=== PATIENT | female | born 1955 | race Caucasian/White ===

== ENCOUNTER 2022-08-31 16:13 | Emergency (ER) | payer OTHER, SELFPAY ==
[2022-08-31 17:19] VITALS: BP 136/96; PULSE 88; RESP 18; TEMP 36.7; O2SAT 100
--- NOTE | 2022-08-31 17:20 | ED.LOWEXIN ---
HPI - Extremity Injury (Lower) General Chief Complaint: Extremity Injury, Lower Stated Complaint: left knee pain/swelling Time Seen by Provider: 08/31/22 17:20 Source: patient Mode of arrival: ambulatory Limitations: no limitations History of Present Illness HPI Narrative: Nayla is a 66-year-old female patient presenting to clinic today with complaints of left knee pain and swelling. She reports 2 weeks ago that her 2 keys-poodle dogs ran into her left knee. States they ran into the front of her knee causing her knee to hyperextended backwards. States that after a week the knee pain did improve however she began to walk and bend and flex her knee normally and it became swollen and painful exam. She does have bilateral lower extremity edema. Does have a history of this and takes water pill when needed. She feels as though the tib-fib area feels bruised and she has tightness in the knee joint Related Data Home Medications Medication Instructions Recorded Confirmed albuterol sulfate 90 mcg/actuation inhalation 08/31/22 aerosol inhaler atorvastatin 80 mg tablet mg 08/31/22 carvedilol 25 mg tablet mg 08/31/22 fluticasone fur. 100 mcg-umeclid inhalation 08/31/22 62.5 mcg-vilant 25 mcg inhalat.powder (Trelegy Ellipta) levothyroxine 175 mcg tablet mcg 08/31/22 paroxetine HCl 20 mg tablet mg PO 08/31/22 rivaroxaban 20 mg tablet (Xarelto) mg 08/31/22 sacubitril 97 mg-valsartan 103 mg tablet 08/31/22 tablet (Entresto) sertraline 100 mg tablet mg 08/31/22 spironolactone 25 mg tablet mg 08/31/22 Allergies Allergy/AdvReac Type Severity Reaction Status Date / Time No Known Allergies Allergy Unknown Unverified 04/19/17 13:30 Review of Systems Review of Systems: Pertinent positives per HPI. Patient denies any fever, chills, rash, headache, visual changes, dizziness, cough, runny nose, sore throat, shortness of breath, chest pain, palpitations, nausea, vomiting, diarrhea, constipation, abdominal pain, or any urinary issues. PMFSH Comments At the time of my signature, I reviewed and agree with the nursing past medical, surgical, social, and family history. There is no relevant family history pertinent to the patient complaint. Exam Narrative: General: Well-developed, well nourished, in no apparent distress Head: Normocephalic, atraumatic. Cardio: Regular rate and rhythm, s1 and s2 normal, no murmur appreciated. Resp: Clear to auscultation bilaterally, no rhonchi, rales, wheezing or rubs. Musculoskeletal: No deformity, swelling to the entire left knee, no redness or erythema noted,tender to palpation over the proximal tib-fib, 2+ pitting edema in lower bilateral extremities, grossly normal range of motion but feels tight, no crepitus felt,muscle strength strong and equal, peripheral pulse strong, no cyanosis, normal gait and station Course Course Emergency Course: Portions of this record may have been created with voice recognition software. Level of Care: Express Care Visit Vital Signs Vital signs: Vital Signs Temperature 36.7 C 08/31/22 17:19 Pulse Rate 88 08/31/22 17:19 Respiratory Rate 18 08/31/22 17:19 Blood Pressure 136/96 H 08/31/22 17:19 Pulse Oximetry 100 08/31/22 17:19 Oxygen Delivery Room Air 08/31/22 17:19 Temperature 36.7 C 08/31/22 17:19 Pulse Rate 88 08/31/22 17:19 Respiratory Rate 18 08/31/22 17:19 Blood Pressure 136/96 H 08/31/22 17:19 Pulse Oximetry 100 08/31/22 17:19 Oxygen Delivery Room Air 08/31/22 17:19 Vital signs reviewed MDM - Extremity Injury (Lower) MDM Narrative Medical decision making narrative: Offered to send patient to another [facility] for x-ray as we do not currently have an x-ray tech on duty. Patient declined at this time and will follow-up with her PCP for further evaluation If taking her water pills do not help. I suspect the patient has a knee sprain. Supportive measures were d
== END 2022-08-31 17:30 | disposition home or self-care (01) ==
PROVIDERS: Emergency Provider Nurse Practitioner Family; PCP Nurse Practitioner Family
DX: S83.92XA Sprain of unspecified site of left knee, initial encounter (principal); W54.1XXA Struck by dog, initial encounter
CPT/HCPCS: 99212; G0463

== ENCOUNTER 2022-09-30 14:46 | Emergency (ER) | payer OTHER, SELFPAY ==
[2022-09-30] VITALS (7 sets, daily range): BP systolic 131–135; BP diastolic 77–87; PULSE 72–91; RESP 18–34; TEMP 36.8; O2SAT 92–95
--- NOTE | ~2022-09-30 | XR_ITS ---
EXAMINATION: XR chest 2V Exam Date/Time: 09/30/2022 15:45 LOADING MANAGER HISTORY: Cough, congestion, sob x 1week Comparison: None available. RESULT: Lines, tubes, and devices: None. Lungs and pleura: Coarse mid and lower lung interstitial opacities with small foci of subsegmental m id and lower lung airspace disease. Left midlung peripheral scar/atelectasis. Mild left costophrenic angle blunting. Cardiomediastinal silhouette: Stable. Other: No acute osseous or upper abdominal finding. IMPRESSION: Pulmonary opacities may represent interstitial edema versus atypical infection/bronchiolitis. Small l eft pleural effusion. Reviewed, dictated and finalized at location [facility]. ING MANAGER IMPRESSION: Pulmonary opacities may represent interstitial edema versus atypical infection/ bronchiolitis. Small left pleural effusion.
--- NOTE | 2022-09-30 15:45 | ECG_ITS ---
Measurements Intervals [place] Rate: 83 P: [place]: 0 QRS: 26 QRSD: 116 T: -6 QT: 372 QTc: 438 Interpretive Statements ATRIAL FIBRILLATION WITH ABERRANT CONDUCTION OR VENTRICULAR PREMATURE COMPLEXES LOW QRS VOLTAGE IN PRECORDIAL LEADS [QRS DEFLECTION < 1.0 mV IN CHEST LEADS] POOR R WAVE PROGRESSION NO PREVIOUS ECG AVAILABLE FOR COMPARISON Electronically Signed On 10-01-2022 6:19:42 [employer] by Griffin Hawkins M.D.
--- NOTE | 2022-09-30 16:07 | ED.GENADULT ---
HPI - General Adult General Chief complaint: Upper Respiratory Infection Stated complaint: Congestion, cough, exposed to the flu Time Seen by Provider: 09/30/22 15:40 History of Present Illness HPI narrative: 66-year-old female with a history of atrial fibrillation, CHF, COPD, A. fib, and hypertension presents to the emergency room for increasing shortness of breath, unproductive cough and sinus congestion since Saturday. Also endorses increased exertional dyspnea since Saturday. States she stopped smoking at this time following a significant history of tobacco use. Denies fever, chest pain or increased use of her rescue inhaler. Related Data Home Medications Medication Instructions Recorded Confirmed albuterol sulfate 90 mcg/actuation inhalation 08/31/22 aerosol inhaler atorvastatin 80 mg tablet mg 08/31/22 carvedilol 25 mg tablet mg 08/31/22 fluticasone fur. 100 mcg-umeclid inhalation 08/31/22 62.5 mcg-vilant 25 mcg inhalat.powder (Trelegy Ellipta) levothyroxine 175 mcg tablet mcg 08/31/22 paroxetine HCl 20 mg tablet mg PO 08/31/22 rivaroxaban 20 mg tablet (Xarelto) mg 08/31/22 sacubitril 97 mg-valsartan 103 mg tablet 08/31/22 tablet (Entresto) sertraline 100 mg tablet mg 08/31/22 spironolactone 25 mg tablet mg 08/31/22 Allergies Allergy/AdvReac Type Severity Reaction Status Date / Time No Known Allergies Allergy Unknown Unverified 04/19/17 13:30 Review of Systems Review of Systems: CONSTITUTIONAL: Denies fever, chills, or sweats. EYES: Denies visual changes, redness, or discharge. ENT: Denies rhinorrhea, congestion, sore throat, or otalgia. CARDIOVASCULAR: Denies chest pain, palpitations, or edema. RESPIRATORY: Reports cough and dyspnea. GASTROINTESTINAL: Denies abdominal pain, nausea, vomiting, or diarrhea. GENITOURINARY: Denies dysuria or hematuria. SKIN: Denies rash or itching. MUSCULOSKELETAL: Denies back pain, joint pain, or myalgia. NEUROLOGIC: Denies headache, numbness, dizziness, or weakness. PSYCHIATRIC: Denies anxiety or depression. Course Vital Signs Vital signs: Vital Signs Temperature 36.8 C 09/30/22 15:20 Pulse Rate 78 12/11/22 15:20 Respiratory Rate 18 09/30/22 15:20 Blood Pressure 135/77 09/30/22 15:20 Pulse Oximetry 95 09/30/22 15:20 Oxygen Delivery Room Air 09/30/22 15:20 Temperature 36.8 C 09/30/22 15:20 Pulse Rate 78 09/30/22 15:20 Respiratory Rate 18 09/30/22 15:20 Blood Pressure 135/77 09/30/22 15:20 Pulse Oximetry 95 09/30/22 15:20 Oxygen Delivery Room Air 09/30/22 15:20 Medical Decision Making MDM Narrative Medical decision making narrative: 66-year-old female history of CHF, atrial fibrillation, COPD, hypertension presented to the emergency room for evaluation of exertional shortness of breath. Patient's chest x-ray showed pulmonary opacities which could be interstitial edema versus an atypical infection. Patient was found to be flu a positive and to have a BNP of 2300. These are consistent with her findings of her chest x-ray. Patient was given a breathing treatment that she says alleviated some of her dyspnea. Given IV Lasix and supplemental potassium here in the ER. Discussed findings with patient, and through shared decision making, patient is requesting to go home. She states that she has oral Lasix and potassium supplementation for uses as needed. Recommended patient use the Lasix and oral potassium for the next 4 or 5 days. We will send patient home with a course of oral steroids and recommended close follow-up with her PCP. Vital Signs Vital Signs: Vital Signs Temperature 36.8 C 09/30/22 15:20 Pulse Rate 78 09/30/22 15:20 Respiratory Rate 18 09/30/22 15:20 Blood Pressure 135/77 09/30/22 15:20 Pulse Oximetry 95 09/30/22 15:20 Oxygen Delivery Room Air 09/30/22 15:20 Temperature 36.8 C 09/30/22 15:20 Pulse Rate 78 09/30/22 15:20 Respiratory Rate 18 09/30/22 15:20 Blood Pres
[2022-09-30] MEDS: IPRATROPIUM BR 0.02% INH SOLN 0.5 MG/2.5 ML VIAL INHALATION (16:22)
[2022-09-30] MEDS: ALBUTEROL SULFATE NEB 2.5 MG/3 ML INH INHALATION (16:22)
[2022-09-30 16:24] LABS: Basophils Absolute Auto 0.1 K/mm3 (0.0-0.1); Basophils Percent Auto 0.7 % (0.2-1.2); Eosinophils Absolute Auto 0.1 K/mm3 (0-0.3); Hematocrit 32.1 % (37.0-47.0); Hemoglobin 10.7 g/dL (12.0-15.0); Immature Granulocyte Absolute 0.15 K/mm3 (0.00-0.031); Immature Granulocyte Percent A 1.8 % (0-0.5); Lymphocytes Absolute Auto 1.22 K/mm3 (0.9-3.2); Lymphocytes Percent Auto 14.7 % (18.3-44.2); Mean Corpuscular HGB Conc 33.3 g/dl (32-36); Mean Corpuscular Volume 99.1 fl (80-100); Mean Platelet Volume 10.1 fl (7.4-10.4); Monocytes Absolute Auto 0.7 K/mm3 (0.1-0.6); Monocytes Percent Auto 8.7 % (2.6-8.5); Neutrophils Absolute Auto 6.1 K/mm3 (1.3-6.7); Neutrophils Percent Auto 73.1 % (45.5-73.1); Platelet Count Result 299 k/mm3 (150-375); Red Blood Count 3.24 M/mm3 (4.2-5.4); Red Cell Distribution Width 12.9 % (11.5-14.5); White Blood Count 8.3 K/mm3 (4.5-10.0)
[2022-09-30] MEDS: methylPREDNISolone SOD SUCC 125 MG VIAL IV PUSH (16:31)
[2022-09-30 16:35] LABS: Alanine Aminotransferase 152 U/L (6-35); Albumin Level 4.1 g/dL (3.5-5.1); Alkaline Phosphatase 170 U/L (38-126); Anion Gap 7 mmol/L (8-16); Aspartate Amino Transferase 129 U/L (14-36); Bilirubin,Total 0.8 mg/dL (0.2-1.3); Blood Urea Nitrogen 7 mg/dL (7-17); Calcium 8.7 mg/dL (8.4-10.2); Carbon Dioxide 27 mmol/L (22-30); Chloride 106 mmol/L (98-107); Estimated CRCL calculation 94 ml/min; Estimated Glomerular Filt Rate > 60; Glucose 115 mg/dL (65-110); Potassium 3.3 mmol/L (3.4-5.0); Sodium 140 mmol/L (137-145)
[2022-09-30 16:40] LABS: INR 1.5; Partial Thromboplastin Time 34.5 SECONDS (22.3-36.8); Prothrombin Time 17.8 Seconds (11.1-14.7)
[2022-09-30 16:47] LABS: NT Pro B Type Natriuretic Pept 2300 pg/mL (5-100); Troponin I < 0.012 ng/mL (0.000-0.034)
[2022-09-30 17:01] LABS: Influenza A QL RT-PCR Positive (Negative); Influenza B QL RT-PCR Negative (Negative); RSV RNA, RT-PCR Negative (Negative); SARS-CoV-2 RNA PCR Negative
[2022-09-30] MEDS: FUROSEMIDE INJ 40 MG/4 ML VIAL IV PUSH (17:16)
[2022-09-30] MEDS: POTASSIUM CHLORIDE 20 MEQ TABLET 40 MEQ PO (17:16)
== END 2022-09-30 17:50 | disposition home or self-care (01) ==
PROVIDERS: Emergency Provider Nurse Practitioner Family; PCP Nurse Practitioner Family
DX: J10.1 Influenza due to other identified influenza virus with other respiratory manifestations (principal); J44.1 Chronic obstructive pulmonary disease with (acute) exacerbation; I50.9 Heart failure, unspecified; Z20.822 Contact with and (suspected) exposure to COVID-19; I48.91 Unspecified atrial fibrillation; I11.0 Hypertensive heart disease with heart failure; Z79.01 Long term (current) use of anticoagulants
CPT/HCPCS: 36415; 71046; 80053; 83880; 84484; 85025; 85610; 85730; 87637; 93005; 94640; 96374; 96375; 99284; A9270; J1940; J2930

== ENCOUNTER → 2022-11-27 10:25 | Outpatient (CLI) | payer OTHER, SELFPAY ==
--- NOTE | ~2022-11-27 | MR_ITS ---
MRI of the left knee Clinical history: Pain Technique: Coronal proton density and proton density-weighted images, sagittal proton-density and T2 fat-sat images, and axial proton-density fat-saturated images were acquired. Findings: Anterior and posterior cruciate ligament are intact. Medial collateral ligament and the lat eral collateral ligament complex are intact. Popliteus tendon is intact. Medial and lateral menisci are intact, without evidence of tear. There is a focally depressed fracture of the lateral tibial plateau, with maximal depression along th e posterior to the fracture of approximately 4.5 mm. There is extensive surrounding marrow edema in t he lateral tibial plateau region. No extension of fracture to the lateral tibial cortex. There is mild to moderate diffuse chondral thinning of the lateral femoral condyle. There is moderate to high-grade diffuse chondral thinning of the medial femoral condyle. There is extensive high-grade chondromalacia of the femoral trochlea and patella. Small scattered areas of subchondral reactive ma rrow edema are present in the femoral trochlea. Extensor mechanism is intact. Small joint effusion present. No Berger's cyst. There is mild subcutaneo us soft tissue edema, especially anteriorly. Impression: Focally depressed fracture of the lateral tibial plateau, as detailed above. 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 Please see details above. No ligamentous injury or meniscal tear seen. Case discussed with Viri Nguyễn at the time of this reading. Reviewed, dictated and finalized at [facility]. OSSE COACH Impression: Focally depressed fracture of the lateral tibial plateau, as detailed above. 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 Please see details above. No ligamentous injury or meniscal tear seen. Case discussed with Viri Nguyễn at the time of this reading.
== END ==
PROVIDERS: PCP Nurse Practitioner Family; Visit Provider Nurse Practitioner Family
DX: M25.562 Pain in left knee (principal); S89.90XA Unspecified injury of unspecified lower leg, initial encounter; X58.XXXA Exposure to other specified factors, initial encounter
CPT/HCPCS: 73721

== ENCOUNTER 2023-10-20 12:22 | Emergency (ER) | payer OTHER, SELFPAY ==
[2023-10-20 12:50] VITALS: BP 120/72; PULSE 85; RESP 18; TEMP 36.6; O2SAT 100
--- NOTE | 2023-10-20 12:59 | ED.URI ---
HPI - URI/Sore Throat General Chief Complaint: Upper Respiratory Infection Stated Complaint: sore throat,voice issue,right eye red Time Seen by Provider: 10/20/23 12:55 Source: patient Mode of arrival: ambulatory Limitations: no limitations History of Present Illness HPI Narrative: Nayla is a 68-year-old female patient presenting to the clinic today with complaints of sore throat, losing her voice, nasal congestion, and bilateral eye redness times 3 days. She denies any known fever or chills. Upon awakening in the morning her eyes are glued shut with yellow drainage. Eyes itchy with gritty sensation MD elicited complaint: sore throat and nasal congestion Related Data Home Medications Medication Instructions Recorded Confirmed albuterol sulfate 90 mcg/actuation inhalation 08/31/22 aerosol inhaler atorvastatin 80 mg tablet mg 08/31/22 carvedilol 25 mg tablet mg 08/31/22 fluticasone fur. 100 mcg-umeclid inhalation 08/31/22 62.5 mcg-vilant 25 mcg inhalat.powder (Trelegy Ellipta) levothyroxine 175 mcg tablet mcg 08/31/22 paroxetine HCl 20 mg tablet mg PO 08/31/22 rivaroxaban 20 mg tablet (Xarelto) mg 08/31/22 sacubitril 97 mg-valsartan 103 mg tablet 08/31/22 tablet (Entresto) sertraline 100 mg tablet mg 08/31/22 spironolactone 25 mg tablet mg 08/31/22 Allergies Allergy/AdvReac Type Severity Reaction Status Date / Time No Known Allergies Allergy Unknown Verified 10/20/23 12:58 Review of Systems Review of Systems: Pertinent positives per HPI. Patient denies any fever, chills, rash, headache, visual changes, dizziness, shortness of breath, chest pain, palpitations, nausea, vomiting, diarrhea, constipation, abdominal pain, or any urinary issues. PMFSH Comments At the time of my signature, I reviewed and agree with the nursing past medical, surgical, social, and family history. There is no relevant family history pertinent to the patient complaint. Exam Narrative: General: Well-developed, well nourished, in no apparent distress Head: Normocephalic, atraumatic Eyes: Pupils equally round and reactive to light bilaterally, EOM intact, bilateral sclera and conjunctive injected with yellow mucopurulent discharge, periorbital edema noted left greater than right Ears: TMs intact and clear, ear canals clear, no drainage, grossly hearing normal. Nose: Nares patent, clear nasal discharge, no inflammation, no sinus tenderness. Mouth: Oral pharynx red without lesions or masses, good dentition, MMM. Neck: Supple, trachea midline, no enlargement of anterior or posterior cervical nodes, no thyroid masses or goiter palpable. Cardio: Regular rate and rhythm, s1 and s2 normal, no murmur appreciated. Resp: Clear to auscultation bilaterally, no rhonchi, rales, wheezing or rubs Course Course Emergency Course: Portions of this record may have been created with voice recognition software. Level of Care: Express Care Visit Vital Signs Vital signs: Vital Signs Temperature 36.6 C 10/20/23 12:50 Pulse Rate 85 10/20/23 12:50 Respiratory Rate 18 10/20/23 12:50 Blood Pressure 120/72 10/20/23 12:50 Pulse Oximetry 100 10/20/23 12:50 Oxygen Delivery Room Air 10/20/23 12:50 Temperature 36.6 C 10/20/23 12:50 Pulse Rate 85 10/20/23 12:50 Respiratory Rate 18 10/20/23 12:50 Blood Pressure 120/72 10/20/23 12:50 Pulse Oximetry 100 10/20/23 12:50 Oxygen Delivery Room Air 10/20/23 12:50 Vital signs reviewed MDM - URI/Sore Throat MDM Narrative Medical decision making narrative: At the time of visit patient is resting comfortably on the exam table. Patient appears to be nontoxic. COVID, influenza, and strep test were negative. I suspect patient has conjunctivitis with URI/pharyngitis. Prescription for tobramycin eyedrops and prednisone was sent to the pharmacy. Supportive measures were discussed with the patient and they voiced understanding discharge instructions
== END 2023-10-20 13:18 | disposition home or self-care (01) ==
PROVIDERS: Emergency Provider Nurse Practitioner Family; PCP Nurse Practitioner Family
DX: J06.9 Acute upper respiratory infection, unspecified (principal); H10.33 Unspecified acute conjunctivitis, bilateral; Z20.822 Contact with and (suspected) exposure to COVID-19
CPT/HCPCS: 87081; 87426; 87804; 87880; 99213; C9803; G0463

== ENCOUNTER 2024-04-22 12:36 | Outpatient (CLI) | payer OTHER, SELFPAY ==
--- NOTE | ~2024-04-22 | MM_ITS ---
EXAMINATION: MM screening amado BI w aydee HISTORY: Screening mammogram TECHNIQUE: Craniocaudal and mediolateral oblique 3-D tomosynthesis images were obtained and synthetic 2-D images were generated. CAD analysis was submitted and interpreted. COMPARISON: No prior mammogram is available for comparison at this institution. BREAST PARENCHYMAL COMPOSITION:Not Dense. There are scattered areas of fibroglandular density. FINDINGS: No suspicious mass, calcification, or architectural distortion are identified in either rigo ast to suggest malignancy. There has been no suspicious interval change. IMPRESSION: No mammographic evidence of malignancy. Recommend routine screening mammography in one year. BI-RADS Category 1: Negative Reviewed, dictated and finalized at location .
== END 2024-04-22 12:37 ==
LOC: MICIMG 12:37
PROVIDERS: PCP Nurse Practitioner Family; Visit Provider Nurse Practitioner Family
DX: Z12.31 Encounter for screening mammogram for malignant neoplasm of breast (principal)
CPT/HCPCS: 77063; 77067

== ENCOUNTER 2024-07-24 12:08 | Outpatient (CLI) | payer OTHER, SELFPAY ==
--- NOTE | ~2024-07-24 | DEXA_ITS ---
Bone Density Report Name: PAULO BAJWA Age: 68 Sex: Female Ethnicity: White Date of : 1955 Indication: postmenopausal; screening for osteoporosis; height loss; prior fracture; Referring Provider: TOLU, ALBA Study: Bone densitometry was performed. Exam Date: July 24, 2024 Accession number: [id number] Bone Density: Region BMD T-score Z-score Classification AP Spine(L1-L4) 1.146 0.9 2.8 Normal Femoral Neck (Left) 0.665 -1.7 0.0 Osteopenia Total Hip (Left) 0.822 -1.0 0.3 Normal Femoral Neck (Right) 0.686 -1.5 0.1 Osteopenia Total Hip (Right) 0.861 -0.7 0.7 Normal Femoral Neck Mean 0.676 -1.6 0.0 Osteopenia Total Hip Mean 0.842 -0.8 0.5 Normal World Health Organization criteria for BMD impression classify patients as: Normal (T-score at or above -1.0), Osteopenia (T-score between -1.0 and -2.5), or Osteoporosis (T-score at or below -2.5). 10-year Fracture Risk(1): Major Osteoporotic Fracture 15% Hip Fracture 3.1% Reported Risk Factors: [place] (), Neck BMD=0.665, BMI=31.0, previous fracture, smoking (1) FRAX(R) Version 3.08. Fracture probability calculated for an untreated patient. Fracture probability may be lower if the patient has received treatment. Clinical Information Provided by Patient: Has had a low trauma fracture Smokes Has used the following medications: Vitamin D, Calcium Patient maximum height was 67.0 Menopause Age: 52 No regular weight bearing exercise Drinks caffeinated beverages Onset of menses at age 14 Number of children 3 Impression: The patient has low bone mass, based on the Left Femoral Neck T-score. The patient has risk factors, including: smoking, previous fracture. Discussion: BONE DENSITY IS LOW AT ONE OR MORE SKELETAL SITES. This patient's lowest T-score is low at one or more skeletal sites. It meets the World Health Organization's (WHO) criteria for ?low bone mass? (T-score between -1.0 and -2.5). The patient's 10-year risk of fracture as calculated by FRAX is less than the threshold where pharmacological therapy is recommended by the National Osteoporosis Foundation (NOF). However, all treatment decisions require clinical judgment and consideration of individual patient factors, including patient preferences, comorbidities, previous drug use, risk factors not captured in the FRAX model (e.g., frailty, falls, vitamin D deficiency, increased bone turnover, interval significant decline in bone density) and possible under or overestimation of fracture risk by FRAX. The patient should follow a healthful lifestyle (good nutrition with adequate calcium and vitamin D, and appropriate weight-bearing exercise). Follow-Up: Consider repeating this study in 2 to 3 years to reassess this patient's status,
== END 2024-07-24 12:09 | disposition home or self-care (01) ==
LOC: CHSIMG 12:09
PROVIDERS: PCP Nurse Practitioner Family; Visit Provider Nurse Practitioner Family
DX: Z78.0 Asymptomatic menopausal state (principal); M85.89 Other specified disorders of bone density and structure, multiple sites
CPT/HCPCS: 77080

== ENCOUNTER 2025-04-26 10:21 | Outpatient (CLI) | payer OTHER, SELFPAY ==
--- NOTE | ~2025-04-26 | MM_ITS ---
EXAMINATION: MM screening amado BI w yadee HISTORY: Screening TECHNIQUE: Craniocaudal and mediolateral oblique 3-D tomosynthesis images were obtained and synthetic 2-D images were generated. CAD analysis was submitted and interpreted. COMPARISON: 04/22/2024 BREAST PARENCHYMAL COMPOSITION: Not Dense: The breasts are almost entirely fatty. FINDINGS: There is no evidence of suspicious mass, calcification, or architectural distortion to sugg est malignancy in either breast. There has been no suspicious interval change. IMPRESSION: 1. No mammographic evidence of malignancy. 2. Recommend routine screening mammography in one year. BI-RADS Category 1: Negative Reviewed, dictated and finalized at location A.
== END 2025-04-26 10:22 | disposition home or self-care (01) ==
LOC: MICIMG 10:22
PROVIDERS: PCP Nurse Practitioner Family; Visit Provider Nurse Practitioner Family
DX: Z12.31 Encounter for screening mammogram for malignant neoplasm of breast (principal)
CPT/HCPCS: 77063; 77067